=== PATIENT | female | born 1995 | race Caucasian/White ===

== ENCOUNTER 2017-05-29 11:57 | Emergency (ER) | payer SELFPAY ==
[~2017-05-29] VITALS: Ht 152.4 cm; Wt 69.4 kg
[2017-05-29 14:35] VITALS: BP 116/68
== END 2017-05-29 14:35 | disposition home or self-care (01) ==
LOC: ED 11:57
DX: R10.13 Epigastric pain (principal); R11.2 Nausea with vomiting, unspecified; R19.7 Diarrhea, unspecified
CPT/HCPCS: J1885; Q0162

== ENCOUNTER 2018-01-09 05:53 | Emergency (ER) | payer SELFPAY ==
[~2018-01-09] VITALS: Ht 152.4 cm; Wt 71.7 kg
[2018-01-09 06:38] LABS: CALCIUM 8.1 mg/dL (8.5-10.1); CARBON DIOXIDE 24.1 mmol/L (21-32); CHLORIDE SERUM 109 mmol/L (98-107); CREATININE SERUM 0.6 mg/dL (0.6-1.0); GFR1 > 60 mL/min; GLUCOSE SERUM 105 mg/dL (74-106); POTASSIUM SERUM 4.6 mmol/L (3.5-5.1); SODIUM SERUM 140 mmol/L (136-145)
[2018-01-09 06:40] LABS: BASOPHIL % 0.5 % (0-2); PLATELET COUNT 345 x10^3mcL (130-400); RED CELL DISTRIBUTION WIDTH 12.1 % (11.5-14.5)
[2018-01-09 06:42] LABS: ALBUMIN 3.4 g/dL (3.4-5.0); ALKALINE PHOSPHATASE 57 U/L (46-116); ALT/SGPT 25 U/L (14-59); AMYLASE 42 U/L (25-115); AST/SGOT 18 U/L (15-37); BILIRUBIN TOTAL 0.3 mg/dL (0.20-1.00); LIPASE 185 IU/L (73-393); TOTAL PROTEIN, SERUM 6.6 g/dL (6.4-8.2)
[2018-01-09 08:14] VITALS: BP 100/68
== END 2018-01-09 08:15 | disposition home or self-care (01) ==
LOC: ED 05:53
PROVIDERS: Specialist
DX: R10.9 Unspecified abdominal pain (principal); R19.7 Diarrhea, unspecified; R11.10 Vomiting, unspecified
CPT/HCPCS: 36415; 83880; J1885; J3010; Q0092; Q0162

== ENCOUNTER 2018-05-04 07:22 | Emergency (ER) | payer SELFPAY ==
[~2018-05-04] VITALS: Ht 152.4 cm; Wt 72.1 kg
[2018-05-04 10:27] VITALS: BP 107/66
== END 2018-05-04 10:27 | disposition home or self-care (01) ==
LOC: ED 07:22
DX: J98.01 Acute bronchospasm (principal)
CPT/HCPCS: J2930; J7613; J7644

== ENCOUNTER 2018-05-09 07:12 | Emergency (ER) | payer OTHER ==
[~2018-05-09] VITALS: Ht 152.4 cm; Wt 71.2 kg
[2018-05-09 07:20] VITALS: Ht 152.4 cm; Wt 71.2 kg
[2018-05-09 08:35] VITALS: BP 103/80
== END 2018-05-09 08:35 | disposition home or self-care (01) ==
LOC: ED 07:12
DX: J40 Bronchitis, not specified as acute or chronic (principal)

== ENCOUNTER 2018-08-27 20:21 | Emergency (ER) | payer OTHER ==
[~2018-08-27] VITALS: Ht 160 cm; Wt 71.7 kg
[2018-08-27 20:29] VITALS: Ht 160 cm; Wt 71.7 kg
[2018-08-27 21:01] VITALS: BP 116/69
== END 2018-08-27 21:01 | disposition home or self-care (01) ==
LOC: ED 20:21
DX: S23.3XXA Sprain of ligaments of thoracic spine, initial encounter (principal); V49.49XA Driver injured in collision with other motor vehicles in traffic accident, initial encounter; Y93.I9 Activity, other involving external motion; Y92.413 State road as the place of occurrence of the external cause; Y99.8 Other external cause status

== ENCOUNTER 2018-11-24 00:26 | Emergency (ER) | payer OTHER ==
[~2018-11-24] VITALS: Ht 152.4 cm; Wt 68.9 kg
[2018-11-24 00:47] VITALS: Ht 152.4 cm; Wt 68.9 kg
[2018-11-24 02:26] VITALS: BP 110/77
== END 2018-11-24 02:26 | disposition home or self-care (01) ==
LOC: ED 00:26
DX: S83.91XA Sprain of unspecified site of right knee, initial encounter (principal); S59.911A Unspecified injury of right forearm, initial encounter; S59.901A Unspecified injury of right elbow, initial encounter; Y04.8XXA Assault by other bodily force, initial encounter; Y93.89 Activity, other specified; Y92.89 Other specified places as the place of occurrence of the external cause; Y99.8 Other external cause status

== ENCOUNTER 2019-10-26 14:04 | Emergency (ER) | payer SELFPAY ==
[~2019-10-26] VITALS: Ht 152.4 cm; Wt 64.9 kg
[2019-10-26 14:08] VITALS: BP 96/72; Ht 152.4 cm; Wt 64.9 kg
== END 2019-10-26 16:09 | disposition home or self-care (01) ==
LOC: ED 14:04
DX: B34.9 Viral infection, unspecified (principal); J20.9 Acute bronchitis, unspecified; F17.210 Nicotine dependence, cigarettes, uncomplicated; Z90.89 Acquired absence of other organs
CPT/HCPCS: 99406; J7512; J7613; J7644

== ENCOUNTER 2020-03-10 23:20 | Emergency (ER) | payer OTHER ==
[2020-03-10 23:49] VITALS: Ht 152.4 cm
[2020-03-11 03:09] VITALS: BP 117/65
== END 2020-03-11 03:09 | disposition home or self-care (01) ==
LOC: ED 23:20
DX: S63.91XA Sprain of unspecified part of right wrist and hand, initial encounter (principal); W23.0XXA Caught, crushed, jammed, or pinched between moving objects, initial encounter; Y93.89 Activity, other specified; Y92.89 Other specified places as the place of occurrence of the external cause; Y99.8 Other external cause status
CPT/HCPCS: J1885